=== PATIENT | male | born 1985 | race Caucasian/White ===

== ENCOUNTER 2020-06-06 11:45 | Emergency (ER) | payer OTHER ==
[~2020-06-06] VITALS: Ht 182.9 cm; Wt 154.2 kg
[2020-06-06 11:55] VITALS: BP_SYST 184
[2020-06-06] MEDS ORDERED: cloNIDine HCL 0.1 MG TABLET PO ONE (12:15)
[2020-06-06] MEDS ORDERED: LORazepam 2 MG/ML VIAL IVP ONE (12:15)
[2020-06-06 12:36] LABS: BASOPHILS % (AUTO) 0.8 % (0.0-2.0); EOSINOPHILS % (AUTO) 0.1 % (0.0-4.0); HEMATOCRIT 37.4 % (36-54); LYMPHOCYTES # (AUTO) 0.5 K/uL (1.0-5.5); LYMPHOCYTES % (AUTO) 12.8 % (20.5-51.5); MEAN CORPUSCULAR HEMOGLOBIN 27 pg (27-31); MEAN CORPUSCULAR HGB CONC 32 % (32-36); MEAN CORPUSCULAR VOLUME 83 fL (79.0-98.0); MONOCYTES # (AUTO) 0.4 K/uL (0.0-1.0); NEUTROPHILS # (AUTO) 2.9 K/uL (1.8-7.7); NEUTROPHILS % (AUTO) 75.3 % (40.0-70.0); PLATELET COUNT (AUTO) 124 K/uL (130-430); RED BLOOD CELL COUNT(AUTO) 4.54 MIL/uL (4.2-6.2); WHITE BLOOD COUNT (AUTO) 3.8 K/uL (4.8-10.8)
[2020-06-06 12:45] LABS: ANION GAP 14 (5-15); CALCIUM 8.5 mg/dL (8.4-11.0); CHLORIDE 99 mmol/L (98-107); CREATININE 0.99 mg/dL (0.55-1.30); GLUCOSE 95 mg/dL (70-99); POTASSIUM 3.4 mmol/L (3.5-5.1); SODIUM SERUM 136 mmol/L (136-145); UREA NITROGEN, BLOOD 8 mg/dL (8-21)
[2020-06-06 12:46] LABS: GFR AFRICAN AMERICAN 111 mL/min (>90)
[2020-06-06 12:51] LABS: ALANINE AMINOTRANSFERASE 54 U/L (12-78); ALBUMIN 3.5 g/dL (3.4-4.8); AMYLASE 36 U/L (0-100); ASPARTATE AMINOTRANSFERASE 138 U/L (10-37); LIPASE 164 U/L (73-393); TOTAL BILIRUBIN 1.6 mg/dL (0.0-1.0)
[2020-06-06 12:52] LABS: ACETONE, SERUM SMALL (NEGATIVE); ALCOHOL, BLOOD < 3 mg/dL (<10)
[2020-06-06 12:55] LABS: INR 1.1 (0.80-1.20); PROTHROMBIN TIME 11.2 SECS (9.5-12.5)
[2020-06-06] MEDS ORDERED: NACL 0.9% 2,000 ML IV ONE (14:00)
[2020-06-06] MEDS ORDERED: OMEP20TA20 PO (14:03)
[2020-06-06] MEDS ORDERED: LORA-259 PO (14:03)
[2020-06-06 15:17] VITALS: BP_SYST 143
== END 2020-06-06 15:17 | disposition home or self-care (01) ==
LOC: SED 11:45
DX: K29.20 Alcoholic gastritis without bleeding (principal); F10.139 Alcohol abuse with withdrawal, unspecified; Y90.0 Blood alcohol level of less than 20 mg/100 ml
CPT/HCPCS: 36415; 70450; 76376; 80053; 82009; 82150; 83605; 83690; 84484; 85025; 85610; 85730; 93005; 96374; 99285; G0482; J2060; J7030